=== PATIENT | female | born 1935 | race Caucasian/White ===

== ENCOUNTER → 2023-12-13 14:57 | Outpatient (REF) | payer OTHER, SELFPAY | LOC: RAD 14:57 | PROVIDERS: ATTENDING PHYSICIAN Internal Medicine | DX: R60.0 Localized edema (principal); I82.402 Acute embolism and thrombosis of unspecified deep veins of left lower extremity | CPT/HCPCS: 93970 ==

== ENCOUNTER 2024-07-08 17:18 | Emergency (ER) | payer OTHER, SELFPAY ==
[2024-07-08 17:26] VITALS: BP 154/94
[2024-07-08 18:57] VITALS: BP 183/82
--- NOTE | 2024-07-08 20:31 | ED.GENMED ---
History of Present Illness
General
Chief Complaint: Nose Bleed
Source: patient
Exam Limitations: none
Time Seen by Provider: 07/08/24 19:07
History of Present Illness
History of Present Illness:
89-year-old female who presents with left-sided nosebleed started around 3:00 today. She went to her doctor applied cotton in her nose. She was sent for evaluation since she is on Eliquis. The patient presents with cotton and nose but states she
has had no symptoms since the cotton was placed. She denies any other symptoms.
Past History
Past History
ED Past Medical History: GERD, HTN, Hypercholesterolemia, NIDDM (Just taken off her metformin) and Other (Takotsubo cardiomyopathy, anxiety. Autonomic nerve system disorder, IBS)
ED Past Surgical History: Appendectomy
Social History
Tobacco: Non-smoker
Alcohol: None
Drug: None
Personal:
Living: assisted living ([facility])
Employment: Retired
Family History
Family History: Cancer
Phy Exam
Physical Exam
Physical Exam:
CONSTITUTIONAL Vital signs reviewed, Patient alert and oriented to person, place and time. Well-appearing
HEAD atraumatic, normocephalic.
EYES eyelids normal to inspection, Extraocular muscles intact, Conjunctiva normal, Sclera normal.
NECK normal range of motion, Trachea midline, no jugular venous distention.
ENT no active bleeding. Small amount dried blood noted in the left nares.
RESP no respiratory distress
BACK No obvious deformities
UPPER EXTREMITY Gross Range of motion normal, gross motor strength normal
LOWER EXTREMITY Gross range of motion normal, Gross motor strength normal
NEURO Speech normal, No focal motor deficits include, Lo coma scale 15, Memory normal, Cranial Nerves intact to screening exam.
SKIN Skin warm, dry, and normal in color.
PSYCHIATRIC Patient oriented to person place and time, Normal affect.
Course
Vital Signs
Initial and Last Documented VS:
Initial Vital Signs
Temp Pulse Resp BP Pulse Ox
97.6 F 82 18 154/94 98
07/08/24 17:26 07/08/24 17:26 07/08/24 17:26 07/08/24 17:26 07/08/24 17:26
Last Documented Vital Signs
Temp Pulse Resp BP Pulse Ox
97.6 F 70 18 183/82 94
07/08/24 17:26 07/08/24 18:57 07/08/24 18:57 07/08/24 18:57 07/08/24 19:00
MDM/Problems Addressed
MDM/Problems Addressed:
Epistaxis, therapeutic coagulopathy
*Pulse Oximetry
Patient hypoxic: no
*Critical Care Note
Total Time (30-74mins, 75-104mins- exclusive of procedures): Not Applicable
Data Reviewed
Source: patient
Prescriptions/Medications Considered But Not Given:
Consider TXA but patient's epistaxis has resolved
Patient Management
Escalation/DeEscalation of care consider admission/obs:
Patient appears well and dry nares. Okay for discharge. Recommended holding her Eliquis tonight. She will resume if no further bleeding tomorrow. I did advise her on how to manage epistaxis at home. Patient will follow-up with PCP
ED Attending Note
-
Portions of this chart may have been created with voice recognition software.� Occasional wrong word or��sound alike� substitutions may have occurred due to the inherent limitations of voice recognition software.
Discharge Plan
Departure
Patient Disposition: Home (Routine Discharge)
Date of Disposition: 07/08/24
Time of Disposition: 20:32
Patient with high blood pressure during this ER visit?: Yes
Discharge Problem:
Epistaxis
Instructions: Nosebleeds (DC), BLOOD PRESSURE
Prescriptions:
No Action
carvedilol [Coreg] 25 MG tablet
25 mg PO BID@0700,1900
venlafaxine 75 MG capsule,extended release 24hr
75 mg PO BID@0700,1400
mesalamine [Lialda] 1.2 GM tablet,delayed release (DR/EC)
1.2 g PO DAILY
gabapentin 100 MG capsule
300 mg PO HS
losartan 50 MG tablet
50 mg PO HS
loperamide 2 MG capsule
2 - 4 mg PO Q4HPRN PRN (Reason: loose stools)
acetaminophen [Tylenol Extra Strength] 500 MG tablet
500 mg PO Q4HPRN PRN (Reason: mild pain)
multivitamin with folic acid [Tab-A-Barrera] 1 TABLET tablet
1 tab PO DAILY
olopatadine [Pazeo] 2.5 ML drops
1 drp BOTH EYES DAILY
ciprofloxacin HCl 500 MG tablet
500 mg PO BID 7 Days Qty: 14 0RF
metronidazole 500 MG tablet
500 mg PO Q8 7 Days Qty: 21 0RF
aspirin 81 MG tablet,delayed release (DR/EC)
81 mg PO HS Qty: 0 0RF
Rx Instructions:
hold for one week
Saccharomyces boulardii 250 MG capsule
500 mg PO BID Qty: 0 0RF
Eliquis DVT-PE Treat 30D Start 5 mg (74 tabs) tablets,dose pack
5 mg PO ONCE Qty: 74 0RF
Rx Instructions:
10 mg p.o. twice daily x7 days followed by 5 mg p.o. twice daily
Activity Restrictions/Additional Instructions:
Please hold your Eliquis tonight. You may resume it tomorrow if there is no further bleeding. If you do have recurrent bleeding please hold pressure on the soft part of the nose as discussed and shown in the emergency department. While in the
emergency department you have had no bleeding. Please avoid sticking anything in the nose or excessive nose blowing. Tomorrow evening, start with applying a small amount of Vaseline in the nares as discussed. Please see your doctor in the next 3
days for follow-up and reevaluation.
Interventions
Interventions:
*Risk Screen - Suicide Last Done: 07/08/24 18:56
*General Assessment Last Done: 07/08/24 18:56
*Neglect/Abuse Screening Last Done: 07/08/24 18:56
*ED COVID-19 Vaccine History Last Done: 07/08/24 18:56
ED-EENT Assessment Last Done: 07/08/24 18:56
Discharge Date and Time
Print Language: BAHAMIAN
== END 2024-07-08 20:00 | disposition home or self-care (01) ==
LOC: EMR 17:18
PROVIDERS: EMERGENCY PHYSICIAN Emergency Medicine; FAMILY PHYSICIAN Internal Medicine
DX: R04.0 Epistaxis (principal); K21.9 Gastro-esophageal reflux disease without esophagitis; I10 Essential (primary) hypertension; E11.9 Type 2 diabetes mellitus without complications; E78.00 Pure hypercholesterolemia, unspecified; F41.9 Anxiety disorder, unspecified; K58.9 Irritable bowel syndrome, unspecified; Z79.01 Long term (current) use of anticoagulants; Z90.49 Acquired absence of other specified parts of digestive tract
CPT/HCPCS: 99282